=== PATIENT | male | born 1950 | race African-American/Black ===

== ENCOUNTER 2019-06-19 05:50 | Emergency (ER) | payer OTHER, MEDICAID ==
[~2019-06-19] VITALS: Ht 172.7 cm; Wt 72.7 kg
[2019-06-19 06:04] VITALS: Ht 172.7 cm; Wt 72.7 kg
[2019-06-19] MEDS ORDERED: NORVASC5 MG PO (06:05)
[2019-06-19] MEDS ORDERED: HCTZ25 MG PO (06:06)
[2019-06-19] MEDS ORDERED: METOPROLOL TART50 MG PO (06:06)
[2019-06-19] MEDS ORDERED: HYDROCODON-ACE1 EAC7 PO (06:30)
[2019-06-19] MEDS ORDERED: VOLTAREN75 MG PO (06:30)
[2019-06-19 06:49] VITALS: BP 120/90
== END 2019-06-19 06:49 | disposition home or self-care (01) ==
LOC: D.ER 05:50
DX: M51.26 Other intervertebral disc displacement, lumbar region (principal)

== ENCOUNTER 2019-06-24 14:18 | Emergency (ER) | payer OTHER, MEDICAID ==
[~2019-06-24] VITALS: Ht 172.7 cm; Wt 72.7 kg
[~2019-06-24 14:18] MED LIST: HCTZ25 MG PO; HYDROCODON-ACE1 EAC7 PO; METOPROLOL TART50 MG PO; NORVASC5 MG PO; VOLTAREN75 MG PO
[2019-06-24 14:49] VITALS: Ht 172.7 cm; Wt 72.7 kg
[2019-06-24] MEDS ORDERED: ROBAXIN500 MG PO (16:02)
[2019-06-24] MEDS ORDERED: CELEBREX 100 M100 MG PO (16:02)
[2019-06-24 16:34] VITALS: BP 147/95
== END 2019-06-24 16:29 | disposition home or self-care (01) ==
LOC: D.ER 14:18
DX: M54.5 Low back pain (principal); M62.830 Muscle spasm of back